=== PATIENT | male | born 1990 | race Caucasian/White ===

== ENCOUNTER 2018-10-23 22:21 | Outpatient (REF) | payer MEDICAID, SELFPAY ==
[2018-10-25 11:19] LABS: HBs Antibody, Quant 165.9 mIU/mL; HIV-1/2 Ag & Ab Screen Negative (NEGAT); Hepatitis B Surface Ab Positive; Hepatitis C Ab w Rflx HCV PCR Negative (NEGAT)
[2018-10-25 14:53] LABS: Chlamydia Result Negative; GC Result Negative; Specimen Description URINE
== END 2018-10-23 22:41 ==
LOC: NCHCN 22:21
PROVIDERS: Visit Provider Registered Nurse
DX: F11.21 Opioid dependence, in remission (principal); Z11.4 Encounter for screening for human immunodeficiency virus [HIV]; Z11.59 Encounter for screening for other viral diseases; Z11.3 Encounter for screening for infections with a predominantly sexual mode of transmission
CPT/HCPCS: 86706; 86803; 87389; 87491; 87591

== ENCOUNTER 2020-02-05 12:47 | Outpatient (REF) | payer MEDICAID, SELFPAY ==
[2020-02-06 13:39] LABS: ALT 29 U/L (16-63); AST 27 U/L (15-37); Albumin 4.5 g/dL (3.4-5.0); Alkaline Phosphatase 79 U/L (46-116); Amylase 59 U/L (25-115); Anion Gap 9.7 mmol/L (3-11); BUN 13 mg/dL (7-18); Bilirubin, Total 0.4 mg/dL (0.2-1.0); CO2 26.3 mmol/L (21.0-32.0); CREATININE 1.01 mg/dL (0.70-1.30); Calcium 9.4 mg/dL (8.5-10.1); Chloride 100 mmol/L (98-107); Glucose 127 mg/dL (74-106); Lipase 252 U/L (73-393); Potassium 4.4 mmol/L (3.5-5.1); Sodium 136 mmol/L (136-145); Total Protein 7.4 g/dL (6.4-8.2)
[2020-02-06 14:10] LABS: Abs Immature Grans 0.02 k/cumm (0.0-0.09); Absolute Basophil Count 0.04 k/cumm (0.0-0.2); Absolute Eosinophil Count 0.17 k/cumm (0.0-0.7); Absolute Lymphocyte Count 2.22 k/cumm (1.2-3.4); Basophils % 0.6; Eosinophils % 2.6; HCT 47.9 % (40.0-50.0); HGB 16.5 g/dL (13.5-17.5); Immature Grans % 0.3 %; Lymphocytes % 34.4; Mean Corp. HGB Concentration 34.4 g/dL (32.0-36.0); Mean Corpuscular Hemoglobin 31.5 pg (27.0-33.0); Mean Corpuscular Volume 91.6 fL (80-95); Mean Platelet Volume 10.9 fL (8.0-11.0); Monocytes % 9.3; Neutrophils % 52.8; Platelet Count 323 x1000/uL (130-400); RBC 5.23 m/cumm (4.50-6.00); RBC Distribution Width 12.2 % (11.8-14.1); White Blood Cell Count 6.45 k/cumm (4.4-10.8)
== END 2020-02-05 13:07 ==
LOC: NCHCN 12:47
PROVIDERS: PCP Registered Nurse; Visit Provider Registered Nurse
DX: F10.10 Alcohol abuse, uncomplicated (principal); K21.9 Gastro-esophageal reflux disease without esophagitis
CPT/HCPCS: 80053; 83690; 82150; 85025

== ENCOUNTER 2020-08-11 15:52 | Outpatient (REF) | payer MEDICAID, SELFPAY ==
[2020-08-15 06:14] LABS: Patient Race White; SARS-CoV-2 RNA Undetected (Undetected); SARS-CoV-2 Specimen Source Nasal
== END 2020-08-11 16:12 ==
LOC: NCHCN 15:52
PROVIDERS: PCP Registered Nurse; Visit Provider Registered Nurse
DX: R51.9 Headache, unspecified (principal); R09.81 Nasal congestion
CPT/HCPCS: U0003